=== PATIENT | male | born 1955 | race Caucasian/White ===

== ENCOUNTER → 2019-10-16 | Outpatient (CLI) | payer BC, OTHER ==
[~2019-10-16] MED LIST: CARAFATE1 GM PO; LIPITOR 10MG10 MG PO; NEXIUM 20MG CAP20 MG PO
== END ==
LOC: COL.RAD 10-14 14:30
DX: Z01.812 Encounter for preprocedural laboratory examination (principal); J98.59 Other diseases of mediastinum, not elsewhere classified
CPT/HCPCS: Q9967

== ENCOUNTER 2020-03-05 14:11 | Emergency (ER) | payer BC, OTHER ==
[~2020-03-05] VITALS: Ht 180.3 cm; Wt 120.5 kg
[2020-03-05 14:21] VITALS: BP 113/73; PULSE 80; TEMP 99
== END 2020-03-05 17:41 | disposition home or self-care (01) ==
LOC: COL.ER 14:11
DX: M79.18 Myalgia, other site (principal); E78.5 Hyperlipidemia, unspecified

== ENCOUNTER 2023-05-22 07:15 | Outpatient (RCR) | payer BC, MEDICARE, OTHER ==
[~2023-05-22 07:15] MED LIST changes: +NORCO 325 MG-51 TAB PO
== END 2023-05-25 | disposition home or self-care (01) ==
LOC: PT.GENESIS
DX: M25.561 Pain in right knee (principal); M54.50 Low back pain, unspecified

== ENCOUNTER 2023-08-07 07:30 | Outpatient (RCR) | payer BC, MEDICARE, OTHER | END 2023-08-25 | disposition home or self-care (01) | LOC: PT.GENESIS | DX: M25.561 Pain in right knee (principal); M54.50 Low back pain, unspecified ==

== ENCOUNTER 2023-09-16 16:30 | Outpatient (RCR) | payer BC, MEDICARE, OTHER | END 2023-09-25 | disposition home or self-care (01) | LOC: PT.GENESIS | DX: M25.561 Pain in right knee (principal); M54.9 Dorsalgia, unspecified ==